=== PATIENT | male | born 1960 | race Caucasian/White ===

== ENCOUNTER 2019-08-16 22:14 | Emergency (ER) | payer BC ==
--- NOTE | 2019-08-17 00:33 | EDM.PDOC ---
ED HPI GENERAL MEDICAL PROBLEM - General Chief Complaint: Cardiovascular Problem Stated Complaint: DIZZY/LEFT ARM ACHES Time Seen by Provider: 08/16/19 22:32 Source of Information: Reports: Patient, Family History Limitations: Reports: No Limitations - History of Present Illness INITIAL COMMENTS - FREE TEXT/NARRATIVE: TRIAGE NOTE -- pt slept at son's house last night, woke up sweaty and disoriented. lasted about 30 minutes then went back to bed. now is feeling dizzy with some intermittent upper epigastric pain. no home meds or PMH. [ End ] History per patient and family. There was a confusional state about 24 hours ago at this point. The patient was apparently in bed at the time. He was noted to be confused and the confusion lasted about 30 minutes. This was observed by son and [id number]. There was no chest pain. The able to get up and walk around with a symmetrical gait and without any obvious neurological deficits otherwise. The confusional state did not seem to interfere with his activity at all. No shortness of breath. No readily identified risk factors. There has been no evaluation or other intervention prior to arrival at the emergency department tonight. Middle Epigastric Pain Score (Numeric/FACES): 6 - Related Data Allergies Allergy/AdvReac Type Severity Reaction Status Date / Time No Known Allergies Allergy Verified 08/17/19 00:16 Home Meds: Home Meds . [No Known Home Meds] 08/17/19 [History] Past Medical History - Past Health History Medical/Surgical History: Denies Medical/Surgical History Social & Family History - Tobacco Use Smoking Status *Q: Never Smoker - Caffeine Use Caffeine Use: Reports: Coffee ED ROS GENERAL - Review of Systems Review Of Systems: Comprehensive ROS is negative, except as noted in HPI. ED EXAM, GENERAL - Physical Exam Exam: See Below Exam Limited By: No Limitations General Appearance: Alert, WD/WN, No Apparent Distress Eye Exam: Bilateral Eye: EOMI, PERRL Ears: Normal External Exam Nose: Normal Inspection Throat/Mouth: Normal Inspection Head: Atraumatic Neck: Normal Inspection, Supple, Non-Tender Respiratory/Chest: No Respiratory Distress, Lungs Clear, Normal Breath Sounds Cardiovascular: Regular Rate, Rhythm GI/Abdominal: Soft, Non-Tender Back Exam: Normal Inspection Extremities: Normal Inspection Neurological: Alert, Oriented, CN II-XII Intact, Normal Cognition, Normal Gait, No Motor/Sensory Deficits, Other (Speech is normal. Motor function normal. No drift. No past-pointing. Symmetrical grimace. Tongue protrusion midline.) Psychiatric: Normal Affect, Normal Mood Skin Exam: Warm, Dry Course - Vital Signs Last Recorded V/S: Last Vital Signs Temp 36.6 C 08/16/19 22:23 Pulse 74 08/16/19 22:23 Resp 20 08/16/19 22:23 BP 121/85 08/16/19 22:23 Pulse Ox 97 08/16/19 22:23 - Orders/Labs/Meds Orders: Active Orders 24 hr Category Date Time Status EKG Documentation Completion [RC] STAT Care 08/16/19 23:07 Active Chest 1V Frontal [CR] Stat Exams 08/16/19 23:07 Taken Head wo Cont [CT] Stat Exams 08/17/19 00:27 Taken Labs: Laboratory Tests 08/16/19 08/16/19 Range/Units 23:24 23:24 WBC 9.40 H (4.23-9.07) K/mm3 RBC 5.25 (4.63-6.08) M/mm3 Hgb 15.3 (13.7-17.5) gm/dl Hct 44.5 (40.1-51.0) % MCV 84.8 (79.0-92.2) fl MCH 29.1 (25.7-32.2) pg MCHC 34.4 (32.2-35.5) g/dl RDW Std Deviation 44.2 H (35.1-43.9) fL Plt Count 161 L (163-337) K/mm3 MPV 10.5 (9.4-12.3) fl Neutrophils % (Manual) 82 H (40-60) % Band Neutrophils % 3 (0-10) % Lymphocytes % (Manual) 9 L (20-40) % Atypical Lymphs % 0 % Monocytes % (Manual) 5 (2-10) % Eosinophils % (Manual) 1 (0.8-7.0) % Basophils % (Manual) 0 L (0.2-1.2) Platelet Estimate Adequate RBC Morph Comment Normal Sodium 141 (136-145) mEq/L Potassium 4.6 (3.5-5.1) mEq/L Chloride 106 (98-107) mEq/L Carbon Dioxide 27 (21-32) mEq/L Anion Gap 12.6 (5-15) BUN 19 H (7-18) mg/dL Creatinine 1.1 (0.7-1.3) mg/dL Est Cr Clr Drug Dosing 65.93 mL/min Estimated GFR (MDRD) > 60 (>60) mL/min BUN/Creatinine Ratio 17.3 (14-18) Glucose 102 (80-115) mg/dL Calcium 8.4 L (8.5-10.1) mg/dL Total Bilirubin 0.4 (0.2-1.0) mg/dL AST 13 L (15-37) U/L ALT 30 (16-63) U/L Alkaline Phosphatase 94 (46-116) U/L Troponin I < 0.017 (0.00-0.056) ng/mL Total Protein 6.8 (6.4-8.2) g/dl Albumin 3.6 (3.4-5.0) g/dl Globulin 3.2 gm/dL Albumin/Globulin Ratio 1.1 (1-2) - Re-Assessments/Exams Free Text/Narrative Re-Assessment/Exam: 08/17/19 01:34 The patient has been evaluated on the basis of this complaint and no significant abnormals emerged from either lab imaging or the exam. CT of the brain is negative for any acute process. On reexamination of the patient he notes that he had a similar episode about 3 months ago. He definitely needs neurology evaluation. It is safe for him to go home with family with precautions for immediate return by EMS should an episode like this happen again. This probably represents a transient ischemic attack. He needs an MRI and probably an MRA. The patient's daughter works at [employer] in [place]. It is thought that she can facilitate an appointment with a neurologist within the next few days. We will go that route for now and if the family cannot get him seen by a neurologist right away then come back to the emergency department and we will do our own referral process. Departure - Departure Time of Disposition: 01:36 Disposition: Home, Self-Care 01 Condition: Good Clinical Impression: Transient confusion Referrals: PCP,Not In Area [Primary Care Provider] - Forms: ED Department Discharge Additional Instructions: You need to see a neurologist as soon as possible. Additional brain imaging and other tests are in order which are beyond the scope of the emergency department here. It is thought that family can arrange this and if unsuccessful in getting an appointment within the next few days return to the ER and we will help with that process. Return immediately by EMS for any further episodes such as this. Sepsis Event Note - Evaluation Sepsis Screening Result: No Definite Risk - Focused Exam Vital Signs: Vital Signs Temp Pulse Resp BP Pulse Ox 08/16/19 22:23 36.6 C 74 20 121/85 97 Date Exam was Performed: 08/17/19 Time Exam was Performed: 01:32 - My Orders Last 24 Hours: My Active Orders 08/16/19 23:07 EKG Documentation Completion [RC] STAT Chest 1V Frontal [CR] Stat 08/17/19 00:27 Head wo Cont [CT] Stat - Assessment/Plan Last 24 Hours: My Active Orders 08/16/19 23:07 EKG Documentation Completion [RC] STAT Chest 1V Frontal [CR] Stat 08/17/19 00:27 Head wo Cont [CT] Stat
--- NOTE | 2019-08-18 07:07 | CT ---
Head CT Technique: Multiple axial sections through the brain were obtained. Intravenous contrast was not utilized. Comparison: No prior intracranial imaging is available. Findings: Ventricles along the basal cisterns and sulci over the convexities appear within normal limits for the patient's age. Low density finding is noted within the posterior right basal ganglia most likely due to prominent perivascular space. No other abnormal parenchymal densities are seen. No evidence of intracranial hemorrhage. No midline shift or mass effect is seen. Mastoid sinuses that are seen appear clear. Visualized paranasal sinuses show nothing acute. No acute calvarial abnormality is appreciated. Impression: 1. Findings as noted above. 2. Nothing acute is appreciated on noncontrast head CT exam. Diagnostic code #2 This report was dictated in [place] Standard Time I agree with preliminary report issued by [facility] (ad report finalized on 08/17/19, 2:02 AM Central Time)
--- NOTE | 2019-08-18 07:07 | CR ---
Chest: Portable view of the chest was obtained. Comparison: No prior chest imaging. Heart size is normal. Tortuous thoracic aorta is seen. Lungs are clear. Bony structures are grossly intact. Impression: 1. Nothing acute is appreciated on portable chest x-ray. Diagnostic code #1 This report was dictated in [place] Standard Time
== END 2019-08-17 01:43 | disposition home or self-care (01) ==
LOC: JD.ED 22:14
DX: R41.0 Disorientation, unspecified (principal)
CPT/HCPCS: 36415; 70450; 70450-26; 71045; 71045-26; 80053; 84484; 85007; 85027; 93005; 93010; 99283; 99284-25

== ENCOUNTER 2019-09-02 10:29 | Emergency (ER) | payer BC ==
--- NOTE | 2019-09-02 11:07 | EDM.PDOC ---
ED HPI GENERAL MEDICAL PROBLEM - General Chief Complaint: Abdominal Pain Stated Complaint: BURNING IN STOMACH/DIZZY Time Seen by Provider: 09/02/19 10:42 Source of Information: Reports: Patient History Limitations: Reports: No Limitations - History of Present Illness INITIAL COMMENTS - FREE TEXT/NARRATIVE: The patient presents with left sided abdominal burning pain. This started today. He also has some dizziness. He has no nausea or vomiting. He was seen here on August 06 for a possible TIA. He then went to [place] and was admitted there for a mini stroke. The patient then asks me if he should go to [place] and be seen. I said that is up to him but we could also see him her. He politely wanted to leave. Onset: Gradual Duration: Hour(s): Location: Reports: Abdomen Quality: Reports: Burning Severity: Moderate Improves with: Reports: None Worsens with: Reports: None Associated Symptoms: Reports: No Other Symptoms Left Abdomen Pain Score (Numeric/FACES): 3 - Related Data Allergies Allergy/AdvReac Type Severity Reaction Status Date / Time No Known Allergies Allergy Verified 09/02/19 10:43 Home Meds: Home Meds Aspirin 81 mg PO DAILY 09/02/19 [History] Ketorolac [Toradol] 10 mg PO BID 09/02/19 [History] Nitroglycerin 1 tab PO ASDIRECTED PRN 09/02/19 [History] atorvaSTATin Calcium [Atorvastatin Calcium] 40 mg PO DAILY 09/02/19 [History] Past Medical History - Past Health History Medical/Surgical History: Denies Medical/Surgical History HEENT History: Reports: Impaired Vision Cardiovascular History: Reports: Hypertension Respiratory History: Reports: None Gastrointestinal History: Reports: None Genitourinary History: Reports: None Musculoskeletal History: Reports: None Neurological History: Reports: TIA Psychiatric History: Reports: None Endocrine/Metabolic History: Reports: None Hematologic History: Reports: None Immunologic History: Reports: None Oncologic (Cancer) History: Reports: None Dermatologic History: Reports: None - Infectious Disease History Infectious Disease History: Reports: None Social & Family History - Tobacco Use Smoking Status *Q: Never Smoker - Caffeine Use Caffeine Use: Reports: Coffee - Recreational Drug Use Recreational Drug Use: No ED ROS GENERAL - Review of Systems Review Of Systems: See Below Constitutional: Reports: No Symptoms HEENT: Reports: No Symptoms Respiratory: Reports: No Symptoms Cardiovascular: Reports: No Symptoms Endocrine: Reports: No Symptoms GI/Abdominal: Reports: No Symptoms : Reports: No Symptoms Musculoskeletal: Reports: No Symptoms ED EXAM, GI/ABD - Physical Exam Exam: See Below Exam Limited By: No Limitations General Appearance: Alert, No Apparent Distress Ears: Normal External Exam Nose: Normal Inspection Respiratory/Chest: No Respiratory Distress Course - Vital Signs Last Recorded V/S: Last Vital Signs Temp 97.9 F 09/02/19 10:39 Pulse 67 09/02/19 10:39 Resp 16 09/02/19 10:39 BP 138/103 H 09/02/19 10:39 Pulse Ox 98 09/02/19 10:39 - Re-Assessments/Exams Free Text/Narrative Re-Assessment/Exam: 09/02/19 11:06 I did not do a complete exam. The patient wanted to go to [place]. He was not rude nor was I and he left. Departure - Departure Time of Disposition: 11:10 Disposition: Home, Self-Care 01 Condition: Good Clinical Impression: Abdominal pain Qualifiers: Abdominal location: lower abdomen, unspecified Qualified Code(s): R10.30 - Lower abdominal pain, unspecified - Discharge Information *PRESCRIPTION DRUG MONITORING PROGRAM REVIEWED*: Not Applicable *COPY OF PRESCRIPTION DRUG MONITORING REPORT IN PATIENT GRACIELA: Not Applicable Referrals: Chaz Miller Jr, MD [Primary Care Provider] - Additional Instructions: Go directly to [facility] to be seen. Sepsis Event Note - Evaluation Sepsis Screening Result: No Definite Risk - Focused Exam Vital Signs: Vital Signs Temp Pulse Resp BP Pulse Ox 09/02/19 10:39 97.9 F 67 16 138/103 H 98 Date Exam was Performed: 09/02/19 Time Exam was Performed: 11:01
== END 2019-09-02 11:00 | disposition left against medical advice (07) ==
LOC: JD.ED 10:29
DX: R10.30 Lower abdominal pain, unspecified (principal); Z79.82 Long term (current) use of aspirin
CPT/HCPCS: 99283

== ENCOUNTER 2021-11-11 19:43 | Emergency (ER) | payer BC ==
[2021-11-11] MEDS ORDERED: Sodium Chloride 0.9% 1,000 ML ONE (20:58)
[2021-11-11] MEDS ORDERED: Sodium Chloride 0.9% 1,000 ML IV ONE (20:58)
== END 2021-11-11 22:14 | disposition home or self-care (01) ==
LOC: JD.ED 19:43
DX: K92.2 Gastrointestinal hemorrhage, unspecified (principal); E78.00 Pure hypercholesterolemia, unspecified; I10 Essential (primary) hypertension; K21.9 Gastro-esophageal reflux disease without esophagitis; E66.9 Obesity, unspecified; Z68.34 Body mass index [BMI] 34.0-34.9, adult; Z86.73 Personal history of transient ischemic attack (TIA), and cerebral infarction without residual deficits; Z79.899 Other long term (current) drug therapy; Z79.02 Long term (current) use of antithrombotics/antiplatelets
CPT/HCPCS: 36415; 80053; 83735; 85014; 85018; 85610; 85730; 99284; J7030

== ENCOUNTER 2021-11-11 23:21 | Observation (INO) | payer BC ==
[2021-11-12] MEDS ORDERED: HYDROmorphone 0.5 MG/0.5 ML Syringe IVPUSH ONE (00:06)
[2021-11-12] MEDS ORDERED: Ondansetron 4 MG/2 ML SDV IVPUSH ONE (00:06)
[2021-11-12] MEDS: Sodium Chloride 0.9% 1,000 ML IV SCH ×2 (00:13→04:42)
[2021-11-12] MEDS ORDERED: HYDROmorphone 0.5 MG/0.5 ML Syringe IVPUSH PRN (04:14)
[2021-11-12] MEDS ORDERED: Sodium Chloride 0.9% 1,000 ML IV SCH (04:15)
[2021-11-12] MEDS ORDERED: Ondansetron 4 MG/2 ML SDV IVPUSH PRN (04:15)
== END 2021-11-12 13:53 | disposition home or self-care (01) ==
LOC: JD.ED 23:21 → JD.MS 11-12 02:03
PROVIDERS: ADMIT Surgery; ATTEND Surgery
DX: K92.2 Gastrointestinal hemorrhage, unspecified (principal); C18.9 Malignant neoplasm of colon, unspecified; I10 Essential (primary) hypertension; E78.00 Pure hypercholesterolemia, unspecified; K21.9 Gastro-esophageal reflux disease without esophagitis; M19.90 Unspecified osteoarthritis, unspecified site; H54.7 Unspecified visual loss; E66.9 Obesity, unspecified; Z68.33 Body mass index [BMI] 33.0-33.9, adult; Z79.02 Long term (current) use of antithrombotics/antiplatelets; Z79.899 Other long term (current) drug therapy; Z79.1 Long term (current) use of non-steroidal anti-inflammatories (NSAID); Z20.822 Contact with and (suspected) exposure to COVID-19; Z86.73 Personal history of transient ischemic attack (TIA), and cerebral infarction without residual deficits
CPT/HCPCS: 36415; 74177; 80053; 83690; 83735; 84484; 85007; 85014; 85018; 85027; 85379; 87635; 93005; 96374; 96375; 99285; G0378; J1170; J2405; J7030; U0002

== ENCOUNTER 2022-03-07 10:08 | Emergency (ER) | payer BC ==
[2022-03-07] MEDS ORDERED: Sodium Chloride 0.9% 10 ML Syringe FLUSH PRN ×2 (10:39→10:48)
[2022-03-07] MEDS ORDERED: Iopamidol 612 MG/ML 100 ML Bottle IVPUSH ONE (10:48)
[2022-03-07] MEDS ORDERED: Diatrizoate Meglumine/Diatrizoate Sodium 37% 120 ML Bottle PO ONE (11:01)
== END 2022-03-07 15:39 | disposition home or self-care (01) ==
LOC: JD.ED 10:08
DX: K92.2 Gastrointestinal hemorrhage, unspecified (principal); D64.89 Other specified anemias; E78.00 Pure hypercholesterolemia, unspecified; I10 Essential (primary) hypertension; M19.90 Unspecified osteoarthritis, unspecified site; E66.9 Obesity, unspecified; Z68.34 Body mass index [BMI] 34.0-34.9, adult; Z86.73 Personal history of transient ischemic attack (TIA), and cerebral infarction without residual deficits; Z91.030 Bee allergy status; Z79.02 Long term (current) use of antithrombotics/antiplatelets; Z79.899 Other long term (current) drug therapy
CPT/HCPCS: 36415; 36430; 74177; 80053; 82607; 82746; 83540; 84466; 84484; 86850; 86900; 86901; 86922; 99285; J3490; P9016; Q9967; 99284; Q9963

== ENCOUNTER 2023-11-14 15:43 | Emergency (ER) | payer MEDICARE, BC, OTHER ==
[2023-11-14 17:25] LABS: BASOPHILS PERCENT AUTO 0.3 % (0.0-1.0); EOSINOPHILS ABSOLUTE AUTO 0.2 K/mm3 (0.0-0.4); EOSINOPHILS PERCENT AUTO 1.3 % (0.0-6.0); HEMATOCRIT 40.4 % (42.0-52.0); HEMOGLOBIN 13.7 gm/dl (14.0-18.0); IMMATURE GRAN ABSOLUTE AUTO 0.05 K/mm3 (0.00-0.05); IMMATURE GRAN PERCENT AUTO 0.4 % (0.0-0.4); LYMPHOCYTES PERCENT AUTO 7.5 % (24.0-44.0); MEAN CORPUSCULAR HEMOGLOBIN 29.5 pg (28.0-32.0); MEAN CORPUSCULAR HGB CONC 33.9 g/dl (32.0-36.0); MEAN CORPUSCULAR VOLUME 87.1 fl (83.0-99.0); MEAN PLATELET VOLUME 10.5 fl (9.4-12.4); MONOCYTES ABSOLUTE AUTO 0.9 K/mm3 (0.0-0.8); MONOCYTES PERCENT AUTO 6.6 % (0.0-8.0); NEUTROPHILS PERCENT AUTO 83.9 % (41.0-71.0); PLATELET COUNT,PLT 156 K/mm3 (150-400); RED BLOOD CELL COUNT 4.64 M/mm3 (4.52-5.90); WHITE BLOOD CELL COUNT,WBC 13.12 K/mm3 (3.9-11.3)
[2023-11-14 17:33] LABS: INR 1.05; PROTHROMBIN TIME 11.2 SECONDS (9.7-12.0)
[2023-11-14 17:35] LABS: ALBUMIN 3.5 g/dl (3.4-5.0); ANION GAP 13.3 (5-15); BILIRUBIN TOTAL 0.7 mg/dL (0.2-1.0); BUN/CREATININE RATIO 26.7 (14-18); CALCIUM 8.5 mg/dL (8.5-10.1); CREATININE 0.9 mg/dL (0.7-1.3); EST CRCL DRUG DOSING (CG) 76.5 mL/min; POTASSIUM,K 4.3 mEq/L (3.5-5.1); PROTEIN TOTAL,TP 6.9 g/dl (6.4-8.2)
[2023-11-14 19:23] LABS: HEMOGLOBIN 12.9 gm/dl (14.0-18.0)
== END 2023-11-14 20:21 | disposition home or self-care (01) ==
LOC: JD.ED 15:43
DX: K13.79 Other lesions of oral mucosa (principal); I10 Essential (primary) hypertension; E78.00 Pure hypercholesterolemia, unspecified; Z86.73 Personal history of transient ischemic attack (TIA), and cerebral infarction without residual deficits; Z79.899 Other long term (current) drug therapy; Z91.030 Bee allergy status
CPT/HCPCS: 36415; 80053; 85014; 85018; 85025; 85610; 86850; 86900; 86901; 99283